=== PATIENT | male | born 1950 | race African-American/Black ===

== ENCOUNTER 2019-04-26 07:07 | Day surgery (SDC) | payer OTHER ==
[2019-04-25 13:53] VITALS: BMI 28.5
[2019-04-26 09:17] VITALS: TEMP 97.9
[2019-04-26 15:03] VITALS: BP 118/68; PULSE 64
--- NOTE | 2019-04-27 14:04 | PATH ---
Surgical Pathology Report Patient Name: BOUCHRA RIVERS [facility] Rec. #: [id number] /Age/Gender: 1950 (Age: 68) / M Account: [id number] Location: [facility]-ENDOSCOPY Taken: 04/26/2019 Received: 04/26/2019 Reported: 04/27/2019 Physicians: Michelet Fernandez D.O. Specimen(s) Received A: SIGMOID POLYP B: BX DISTAL RECTUM Clinical History History of colon polyps Postoperative diagnosis: Diverticulosis, colon polyp Final Diagnosis A. SIGMOID, POLYP, POLYPECTOMY: HYPERPLASTIC POLYP. B. DISTAL RECTUM, BIOPSY: HYPERPLASTIC POLYP. Electronically Signed Mattie Rose M.D. Gross Description A. Received in formalin, labeled "polyp sigmoid" is a solis, irregular portion of soft tissue measuring 0.2 cm. in greatest dimension. The specimen is submitted in toto in one cassette. B. Received in formalin, labeled "biopsy distal rectum" are 6 solis, irregular portions of soft tissue ranging from 0.1-0.4 cm. in greatest dimension. The specimens are submitted in toto in one cassette. 04/26/2019 saudi04/26/2019
== END 2019-04-26 10:00 | disposition home or self-care (01) ==
LOC: JASU-ENDO 07:07
PROVIDERS: ATTEND Internal Medicine Gastroenterology
PROC: 0DBP8ZX Excision of Rectum, Via Natural or Artificial Opening Endoscopic, Diagnostic (ICD-10-PCS; 2019-04-26)
PROC: 0DBN8ZX Excision of Sigmoid Colon, Via Natural or Artificial Opening Endoscopic, Diagnostic (ICD-10-PCS; 2019-04-26)
PROC: 0DBN8ZX Excision of Sigmoid Colon, Via Natural or Artificial Opening Endoscopic, Diagnostic (ICD-10-PCS; principal; 2019-04-26 08:00)
DX: Z86.010 Personal history of colon polyps (principal); D12.5 Benign neoplasm of sigmoid colon; K62.1 Rectal polyp; K57.30 Diverticulosis of large intestine without perforation or abscess without bleeding; K64.8 Other hemorrhoids
CPT/HCPCS: 88305-TC

== ENCOUNTER 2023-02-15 04:47 | Day surgery (SDC) | payer OTHER ==
[2023-02-10 13:08] VITALS: BMI 30.7
[2023-02-15 13:14] VITALS: BP 136/84; PULSE 73; RESP 14; TEMP 97.5
== END 2023-02-15 12:40 | disposition home or self-care (01) ==
LOC: JASU-ENDO 04:47
PROVIDERS: ATTEND Internal Medicine Gastroenterology
PROC: 0DBN8ZX Excision of Sigmoid Colon, Via Natural or Artificial Opening Endoscopic, Diagnostic (ICD-10-PCS; principal; 2023-02-15 10:45)
DX: Z12.11 Encounter for screening for malignant neoplasm of colon (principal); D12.5 Benign neoplasm of sigmoid colon; K62.7 Radiation proctitis; K64.8 Other hemorrhoids; K57.30 Diverticulosis of large intestine without perforation or abscess without bleeding; Z86.010 Personal history of colon polyps; I10 Essential (primary) hypertension
CPT/HCPCS: 88305-TC

== ENCOUNTER 2023-02-17 20:02 | Observation (INO) | payer OTHER ==
[2023-02-17 22:26] LABS: BASO % 0.7 % (0-2.0); EOS % 1.8 % (0-4.5); HEMATOCRIT 34.3 % (35.4-49); HEMOGLOBIN 11.4 GM/dL (11.7-16.9); LYMPH % 34.7 % (8-40); MCH 31.1 pg (25.7-33.7); MCHC 33.3 g/dl (32.0-35.9); MEAN CELL VOLUME 93.3 fl (80-96); MEAN PLT VOLUME 8.4 fl (7.5-11.1); MONO % 8.2 % (3.8-10.2); NEUT % 54.6 % (42.8-82.8); PLATELET COUNT 174 10^3/uL (134-434); RBC 3.68 M/mm3 (4.00-5.60); RDW 14.1 % (11.9-15.9); RETICULOCYTES 1.08 % (0.5-1.5); WHITE BLOOD COUNT 4.2 K/mm3 (4.0-10.0)
[2023-02-17 22:30] LABS: INR 0.98 (0.83-1.09); PROTHROMBIN TIME (PATIENT) 11.4 SEC (9.7-13.0)
[2023-02-17 22:32] LABS: ACTIVATED PTT 29.6 SECONDS (25.2-36.5)
[2023-02-17 22:40] LABS: POTASSIUM 3.8 mmol/L (3.5-5.1)
[2023-02-17 22:42] LABS: CALCIUM 9.3 mg/dL (8.5-10.1)
[2023-02-17 22:43] LABS: ALBUMIN 4.1 g/dl (3.4-5.0); BLOOD UREA NITROGEN 14.2 mg/dL (7-18)
[2023-02-17 22:46] LABS: CREATININE 1.2 mg/dL (0.55-1.3)
[2023-02-17 22:47] LABS: TOT PROT 7.7 g/dl (6.4-8.2)
[2023-02-17 22:48] LABS: BILIRUBIN,TOTAL 0.7 mg/dL (0.2-1)
[2023-02-18] MEDS ORDERED: ACETAMINOPHEN 325 MG TABLET (FP) PO PRN (02:00)
[2023-02-18 15:39] LABS: BASO % 0.7 % (0-2.0); EOS % 2.3 % (0-4.5); HEMATOCRIT 32.2 % (35.4-49); HEMOGLOBIN 10.7 GM/dL (11.7-16.9); LYMPH % 44.1 % (8-40); MCH 31.1 pg (25.7-33.7); MCHC 33.1 g/dl (32.0-35.9); MEAN CELL VOLUME 94.1 fl (80-96); MEAN PLT VOLUME 8.7 fl (7.5-11.1); MONO % 8.1 % (3.8-10.2); NEUT % 44.8 % (42.8-82.8); PLATELET COUNT 168 10^3/uL (134-434); RBC 3.42 M/mm3 (4.00-5.60); RDW 13.9 % (11.9-15.9); WHITE BLOOD COUNT 3.8 K/mm3 (4.0-10.0)
[2023-02-18 16:56] VITALS: BMI 29.3
[2023-02-18 18:38] LABS: BASO % 0.5 % (0-2.0); EOS % 2.5 % (0-4.5); HEMATOCRIT 34.9 % (35.4-49); HEMOGLOBIN 11.4 GM/dL (11.7-16.9); LYMPH % 48.1 % (8-40); MCH 30.8 pg (25.7-33.7); MCHC 32.7 g/dl (32.0-35.9); MEAN CELL VOLUME 94.1 fl (80-96); MONO % 8.8 % (3.8-10.2); NEUT % 40.1 % (42.8-82.8); PLATELET COUNT 186 10^3/uL (134-434); RBC 3.71 M/mm3 (4.00-5.60); RDW 13.7 % (11.9-15.9); WHITE BLOOD COUNT 4.4 K/mm3 (4.0-10.0)
[2023-02-18] MEDS ORDERED: ROSUVASTATIN CA 5 MG TABLET PO SCH (22:00)
[2023-02-19 08:20] LABS: BASO % 0.6 % (0-2.0); EOS % 3.3 % (0-4.5); HEMATOCRIT 34.3 % (35.4-49); HEMOGLOBIN 11.2 GM/dL (11.7-16.9); LYMPH % 41.5 % (8-40); MCHC 32.7 g/dl (32.0-35.9); MEAN CELL VOLUME 94.8 fl (80-96); MEAN PLT VOLUME 9.3 fl (7.5-11.1); MONO % 7.8 % (3.8-10.2); NEUT % 46.8 % (42.8-82.8); PLATELET COUNT 182 10^3/uL (134-434); RBC 3.62 M/mm3 (4.00-5.60); RDW 13.4 % (11.9-15.9); WHITE BLOOD COUNT 3.9 K/mm3 (4.0-10.0)
[2023-02-19 08:21] LABS: BASO % 0.9 % (0-2.0); HEMATOCRIT 34.4 % (35.4-49); HEMOGLOBIN 11.2 GM/dL (11.7-16.9); LYMPH % 41.9 % (8-40); MCH 31.1 pg (25.7-33.7); MCHC 32.4 g/dl (32.0-35.9); MEAN CELL VOLUME 95.7 fl (80-96); MEAN PLT VOLUME 9.4 fl (7.5-11.1); MONO % 7.3 % (3.8-10.2); NEUT % 46.9 % (42.8-82.8); PLATELET COUNT 189 10^3/uL (134-434); RDW 13.5 % (11.9-15.9); WHITE BLOOD COUNT 3.8 K/mm3 (4.0-10.0)
[2023-02-19 08:27] LABS: POTASSIUM 4.4 mmol/L (3.5-5.1)
[2023-02-19 08:29] LABS: CALCIUM 8.9 mg/dL (8.5-10.1)
[2023-02-19 08:30] LABS: BLOOD UREA NITROGEN 16.9 mg/dL (7-18); MAGNESIUM 2.3 mg/dL (1.8-2.4)
[2023-02-19 08:33] LABS: PHOSPHOROUS 3.9 mg/dL (2.5-4.9)
[2023-02-19 08:34] LABS: CREATININE 1.2 mg/dL (0.55-1.3)
[2023-02-19] MEDS ORDERED: BICALUTAMIDE 50 MG TABLET (FP) PO SCH (10:00)
[2023-02-19] MEDS ORDERED: amLODIPine BESYLATE 5 MG TABLET (FP) PO SCH (10:00)
[2023-02-19 12:23] LABS: BASO % 0.6 % (0-2.0); EOS % 2.9 % (0-4.5); HEMATOCRIT 33.9 % (35.4-49); HEMOGLOBIN 11.2 GM/dL (11.7-16.9); LYMPH % 39.8 % (8-40); MCH 31.6 pg (25.7-33.7); MCHC 32.9 g/dl (32.0-35.9); MEAN CELL VOLUME 95.8 fl (80-96); MONO % 8.4 % (3.8-10.2); NEUT % 48.3 % (42.8-82.8); PLATELET COUNT 176 10^3/uL (134-434); RBC 3.54 M/mm3 (4.00-5.60); RDW 13.8 % (11.9-15.9); WHITE BLOOD COUNT 3.9 K/mm3 (4.0-10.0)
[2023-02-19 14:08] VITALS: BP 154/83; PULSE 76; RESP 20; TEMP 97.8
== END 2023-02-19 16:14 | disposition home or self-care (01) ==
LOC: JER 20:02 → JERBED 02-18 01:28 → J7W 02-18 16:11
PROVIDERS: ADMIT Internal Medicine; ATTEND Family Medicine
DX: K92.2 Gastrointestinal hemorrhage, unspecified (principal); K62.7 Radiation proctitis; K64.8 Other hemorrhoids; I10 Essential (primary) hypertension; E78.5 Hyperlipidemia, unspecified; Z87.891 Personal history of nicotine dependence
CPT/HCPCS: 36415; 80048; 80053; 82728; 83540; 83550; 83735; 84100; 85025; 85045; 85610; 85730; 86850; 86900; 86901; 93005; 93010; 99285-25; G0378

== ENCOUNTER 2023-05-16 19:45 | Inpatient (IN) | payer OTHER ==
[2023-05-16 20:58] LABS: BASO % 0.8 % (0-2.0); EOS % 5.2 % (0-4.5); HEMATOCRIT 33.2 % (35.4-49); HEMOGLOBIN 10.9 GM/dL (11.7-16.9); LYMPH % 40.1 % (8-40); MCH 31.4 pg (25.7-33.7); MCHC 32.9 g/dl (32.0-35.9); MEAN CELL VOLUME 95.5 fl (80-96); MEAN PLT VOLUME 9.2 fl (7.5-11.1); MONO % 7.1 % (3.8-10.2); NEUT % 46.8 % (42.8-82.8); PLATELET COUNT 181 10^3/uL (134-434); RBC 3.48 M/mm3 (4.00-5.60); RDW 13.6 % (11.9-15.9); WHITE BLOOD COUNT 4.3 K/mm3 (4.0-10.0)
[2023-05-16 21:08] LABS: INR 0.97 (0.83-1.09); PROTHROMBIN TIME (PATIENT) 11.3 SEC (9.7-13.0)
[2023-05-16 21:11] LABS: ACTIVATED PTT 28.4 SECONDS (25.2-36.5)
[2023-05-16 21:14] LABS: POTASSIUM 4.3 mmol/L (3.5-5.1)
[2023-05-16 21:16] LABS: CALCIUM 8.9 mg/dL (8.5-10.1)
[2023-05-16 21:17] LABS: ALBUMIN 3.9 g/dl (3.4-5.0); BLOOD UREA NITROGEN 14.6 mg/dL (7-18)
[2023-05-16 21:20] LABS: CREATININE 1.2 mg/dL (0.55-1.3)
[2023-05-16 21:21] LABS: BILIRUBIN,TOTAL 0.6 mg/dL (0.2-1)
[2023-05-16 21:22] LABS: TOT PROT 7.2 g/dl (6.4-8.2)
[2023-05-16] MEDS: DEXTROSE 5%-0.45% SALINE 1,000 ML IV SCH (23:23)
[2023-05-17 06:44] LABS: BASO % 0.8 % (0-2.0); EOS % 5.7 % (0-4.5); HEMATOCRIT 31.3 % (35.4-49); HEMOGLOBIN 10.3 GM/dL (11.7-16.9); LYMPH % 37.7 % (8-40); MCH 31.4 pg (25.7-33.7); MCHC 32.8 g/dl (32.0-35.9); MEAN CELL VOLUME 95.6 fl (80-96); MEAN PLT VOLUME 9.8 fl (7.5-11.1); MONO % 7.6 % (3.8-10.2); NEUT % 48.2 % (42.8-82.8); PLATELET COUNT 142 10^3/uL (134-434); RBC 3.28 M/mm3 (4.00-5.60); WHITE BLOOD COUNT 3.9 K/mm3 (4.0-10.0)
[2023-05-17 07:09] LABS: POTASSIUM 3.6 mmol/L (3.5-5.1)
[2023-05-17 07:15] LABS: ALBUMIN 3.4 g/dl (3.4-5.0); BLOOD UREA NITROGEN 12.2 mg/dL (7-18); CALCIUM 8.6 mg/dL (8.5-10.1)
[2023-05-17 07:18] LABS: CREATININE 1.2 mg/dL (0.55-1.3)
[2023-05-17 07:20] LABS: TOT PROT 6.3 g/dl (6.4-8.2)
[2023-05-17] MEDS: TAMSULOSIN HCL 0.4 MG CAP PO SCH (09:18)
[2023-05-17] MEDS: amLODIPine BESYLATE 5 MG TABLET (FP) PO SCH (09:24)
[2023-05-17] MEDS: BICALUTAMIDE 50 MG TABLET (FP) PO SCH (09:24)
[2023-05-17 21:51] LABS: BASO % 0.8 % (0-2.0); HEMATOCRIT 30.2 % (35.4-49); LYMPH % 36.4 % (8-40); MCH 31.1 pg (25.7-33.7); MCHC 33.1 g/dl (32.0-35.9); MEAN CELL VOLUME 93.9 fl (80-96); MEAN PLT VOLUME 8.8 fl (7.5-11.1); MONO % 6.9 % (3.8-10.2); NEUT % 50.9 % (42.8-82.8); PLATELET COUNT 166 10^3/uL (134-434); RBC 3.21 M/mm3 (4.00-5.60); RDW 13.7 % (11.9-15.9); WHITE BLOOD COUNT 4.1 K/mm3 (4.0-10.0)
[2023-05-17] MEDS: ROSUVASTATIN CA 5 MG TABLET PO SCH (21:52)
[2023-05-18] MEDS ORDERED: TAMSULOSIN HCL 0.4 MG CAP PO SCH (08:30)
[2023-05-18] MEDS: TAMSULOSIN HCL 0.4 MG CAP PO SCH (09:04)
[2023-05-18] MEDS: amLODIPine BESYLATE 5 MG TABLET (FP) PO SCH (09:13)
[2023-05-18] MEDS: BICALUTAMIDE 50 MG TABLET (FP) PO SCH (09:13)
[2023-05-18] MEDS ORDERED: BISACODYL 5 MG TABLET.DR (FP) PO ONE (16:00)
[2023-05-18] MEDS ORDERED: PEG 3350/NA SULF BICARB CL/KCL 4000 ML SOLN.RECON PO ONE (17:00)
[2023-05-18] MEDS: ROSUVASTATIN CA 5 MG TABLET PO SCH (21:47)
[2023-05-18] MEDS: DEXTROSE 5%-0.45% SALINE 1,000 ML IV SCH (21:50)
[2023-05-19] MEDS: TAMSULOSIN HCL 0.4 MG CAP PO SCH (08:54)
[2023-05-19] MEDS: BICALUTAMIDE 50 MG TABLET (FP) PO SCH (09:00)
[2023-05-19] MEDS: amLODIPine BESYLATE 5 MG TABLET (FP) PO SCH (09:01)
[2023-05-19 15:32] LABS: BASO % 0.5 % (0-2.0); EOS % 1.9 % (0-4.5); HEMATOCRIT 31.9 % (35.4-49); HEMOGLOBIN 10.5 GM/dL (11.7-16.9); LYMPH % 19.6 % (8-40); MCH 31.4 pg (25.7-33.7); MEAN CELL VOLUME 94.9 fl (80-96); MEAN PLT VOLUME 8.6 fl (7.5-11.1); MONO % 4.6 % (3.8-10.2); NEUT % 73.4 % (42.8-82.8); PLATELET COUNT 170 10^3/uL (134-434); RBC 3.36 M/mm3 (4.00-5.60); RDW 13.9 % (11.9-15.9); WHITE BLOOD COUNT 4.4 K/mm3 (4.0-10.0)
[2023-05-19 16:25] LABS: POTASSIUM 3.8 mmol/L (3.5-5.1)
[2023-05-19 16:27] LABS: ALBUMIN 3.6 g/dl (3.4-5.0); CALCIUM 9.1 mg/dL (8.5-10.1)
[2023-05-19 16:28] LABS: BLOOD UREA NITROGEN 11.8 mg/dL (7-18)
[2023-05-19 16:32] LABS: TOT PROT 6.7 g/dl (6.4-8.2)
[2023-05-19 16:42] LABS: CREATININE 1.4 mg/dL (0.55-1.3)
[2023-05-19] MEDS: ROSUVASTATIN CA 5 MG TABLET PO SCH (21:27)
[2023-05-20] MEDS: DEXTROSE 5%-0.45% SALINE 1,000 ML IV SCH (06:21)
[2023-05-20] MEDS: amLODIPine BESYLATE 5 MG TABLET (FP) PO SCH (09:31)
[2023-05-20] MEDS: TAMSULOSIN HCL 0.4 MG CAP PO SCH (09:31)
[2023-05-20] MEDS: BICALUTAMIDE 50 MG TABLET (FP) PO SCH (09:32)
[2023-05-20 18:29] LABS: BASO % 0.8 % (0-2.0); EOS % 3.4 % (0-4.5); HEMATOCRIT 32.9 % (35.4-49); HEMOGLOBIN 10.7 GM/dL (11.7-16.9); LYMPH % 29.8 % (8-40); MCH 31.3 pg (25.7-33.7); MCHC 32.7 g/dl (32.0-35.9); MEAN CELL VOLUME 95.7 fl (80-96); MEAN PLT VOLUME 8.9 fl (7.5-11.1); MONO % 7.5 % (3.8-10.2); NEUT % 58.5 % (42.8-82.8); PLATELET COUNT 173 10^3/uL (134-434); RBC 3.43 M/mm3 (4.00-5.60); RDW 13.9 % (11.9-15.9); WHITE BLOOD COUNT 6.6 K/mm3 (4.0-10.0)
[2023-05-20] MEDS: ROSUVASTATIN CA 5 MG TABLET PO SCH (21:33)
[2023-05-21 07:06] LABS: BASO % 0.8 % (0-2.0); EOS % 4.5 % (0-4.5); HEMATOCRIT 29.9 % (35.4-49); LYMPH % 35.7 % (8-40); MCH 31.8 pg (25.7-33.7); MCHC 33.3 g/dl (32.0-35.9); MEAN CELL VOLUME 95.2 fl (80-96); MEAN PLT VOLUME 8.9 fl (7.5-11.1); MONO % 8.8 % (3.8-10.2); NEUT % 50.2 % (42.8-82.8); PLATELET COUNT 165 10^3/uL (134-434); RBC 3.14 M/mm3 (4.00-5.60); RDW 13.8 % (11.9-15.9)
[2023-05-21] MEDS: TAMSULOSIN HCL 0.4 MG CAP PO SCH (08:21)
[2023-05-21] MEDS: BICALUTAMIDE 50 MG TABLET (FP) PO SCH (09:58)
[2023-05-21] MEDS: amLODIPine BESYLATE 5 MG TABLET (FP) PO SCH (09:58)
[2023-05-21] MEDS: DEXTROSE 5%-0.45% SALINE 1,000 ML IV SCH (13:00)
[2023-05-21] MEDS: ROSUVASTATIN CA 5 MG TABLET PO SCH (21:13)
[2023-05-22 06:45] LABS: BASO % 0.9 % (0-2.0); EOS % 4.5 % (0-4.5); HEMATOCRIT 30.2 % (35.4-49); HEMOGLOBIN 10.2 GM/dL (11.7-16.9); LYMPH % 38.4 % (8-40); MCH 32.1 pg (25.7-33.7); MCHC 33.8 g/dl (32.0-35.9); MEAN PLT VOLUME 8.6 fl (7.5-11.1); MONO % 8.6 % (3.8-10.2); NEUT % 47.6 % (42.8-82.8); PLATELET COUNT 168 10^3/uL (134-434); RBC 3.18 M/mm3 (4.00-5.60); RDW 13.4 % (11.9-15.9); WHITE BLOOD COUNT 4.8 K/mm3 (4.0-10.0)
[2023-05-22 07:01] LABS: POTASSIUM 3.8 mmol/L (3.5-5.1)
[2023-05-22 07:05] LABS: BLOOD UREA NITROGEN 15.3 mg/dL (7-18); CALCIUM 8.7 mg/dL (8.5-10.1)
[2023-05-22 07:08] LABS: CREATININE 1.3 mg/dL (0.55-1.3)
[2023-05-22] MEDS: TAMSULOSIN HCL 0.4 MG CAP PO SCH (08:07)
[2023-05-22] MEDS: DEXTROSE 5%-0.45% SALINE 1,000 ML IV SCH ×2 (09:00→15:15)
[2023-05-22] MEDS: amLODIPine BESYLATE 5 MG TABLET (FP) PO SCH (10:25)
[2023-05-22] MEDS: BICALUTAMIDE 50 MG TABLET (FP) PO SCH (10:25)
[2023-05-22 20:17] VITALS: RESP 19
[2023-05-22] MEDS: ROSUVASTATIN CA 5 MG TABLET PO SCH (21:05)
[2023-05-23 07:34] LABS: BASO % 0.9 % (0-2.0); EOS % 4.9 % (0-4.5); HEMATOCRIT 30.1 % (35.4-49); HEMOGLOBIN 9.9 GM/dL (11.7-16.9); MCH 31.4 pg (25.7-33.7); MCHC 32.8 g/dl (32.0-35.9); MEAN CELL VOLUME 95.6 fl (80-96); MONO % 9.2 % (3.8-10.2); PLATELET COUNT 174 10^3/uL (134-434); RBC 3.14 M/mm3 (4.00-5.60); RDW 13.8 % (11.9-15.9); WHITE BLOOD COUNT 4.2 K/mm3 (4.0-10.0)
[2023-05-23 07:50] LABS: CALCIUM 8.7 mg/dL (8.5-10.1)
[2023-05-23 07:51] LABS: BLOOD UREA NITROGEN 19.3 mg/dL (7-18)
[2023-05-23 07:54] LABS: CREATININE 1.5 mg/dL (0.55-1.3)
[2023-05-23 08:57] VITALS: BP 128/73; PULSE 83; TEMP 98.4
[2023-05-23] MEDS: BICALUTAMIDE 50 MG TABLET (FP) PO SCH (09:12)
[2023-05-23] MEDS: amLODIPine BESYLATE 5 MG TABLET (FP) PO SCH (09:12)
[2023-05-23] MEDS: TAMSULOSIN HCL 0.4 MG CAP PO SCH (09:12)
== END 2023-05-23 13:03 | disposition home or self-care (01) | DRG 393 ==
LOC: JER 19:45 → OBSVTOIN 22:07 → JERBED 22:07 → INTOOBSV 22:07 → UNDOADMOB 22:07 → JERBED 05-17 04:41 → J4W 05-17 04:41 → JERBED 05-19 07:08 → OBSVTOIN 05-19 07:08 → J4W 05-19 22:30
PROVIDERS: ADMIT Internal Medicine; ATTEND Family Medicine
PROC: 0D5E8ZZ Destruction of Large Intestine, Via Natural or Artificial Opening Endoscopic (ICD-10-PCS; principal; 2023-05-19 10:30)
DX: K62.7 Radiation proctitis (principal); K57.91 Diverticulosis of intestine, part unspecified, without perforation or abscess with bleeding; K62.5 Hemorrhage of anus and rectum; E78.5 Hyperlipidemia, unspecified; I10 Essential (primary) hypertension; Z85.46 Personal history of malignant neoplasm of prostate; E66.9 Obesity, unspecified; Z68.30 Body mass index [BMI] 30.0-30.9, adult
CPT/HCPCS: 0241U-QW; 36415; 80048; 80053; 82272; 84484; 85025; 85610; 85730; 86850; 86900; 86901; 93005; 93010; 97116-GP; 97161-GP; 99285-25

== ENCOUNTER 2023-07-04 04:14 | Day surgery (SDC) | payer OTHER ==
[2023-06-30 11:52] VITALS: BMI 30.4
[2023-07-04 13:39] VITALS: TEMP 98
[2023-07-04 13:44] VITALS: BP 126/68; PULSE 87; RESP 17
== END 2023-07-04 10:06 | disposition home or self-care (01) ==
LOC: JASU-ENDO 04:14
PROVIDERS: ATTEND Internal Medicine Gastroenterology
PROC: 0D5P8ZZ Destruction of Rectum, Via Natural or Artificial Opening Endoscopic (ICD-10-PCS; principal; 2023-07-04 08:45)
DX: K62.7 Radiation proctitis (principal); K64.8 Other hemorrhoids; I10 Essential (primary) hypertension

== ENCOUNTER 2023-08-18 12:08 | Day surgery (SDC) | payer OTHER ==
[2023-08-18] MEDS: IRON SUCROSE INJECTION 200 MG in SODIUM CHLORIDE 100 ML IVPB ONE (12:40)
[2023-08-18 14:26] VITALS: BP 128/77; PULSE 72; RESP 18; TEMP 98.2
== END 2023-08-18 13:45 | disposition home or self-care (01) ==
LOC: FINFUSION 12:08 → FM/S 12:10 → FINFUSION 13:45
PROVIDERS: ATTEND Family Medicine
PROC: 3E033GC Introduction of Other Therapeutic Substance into Peripheral Vein, Percutaneous Approach (ICD-10-PCS; principal; 2023-08-18)
DX: D50.9 Iron deficiency anemia, unspecified (principal)
CPT/HCPCS: 96365; J1756

== ENCOUNTER 2023-08-25 12:52 | Day surgery (SDC) | payer OTHER ==
[2023-08-25] MEDS: IRON SUCROSE INJECTION 200 MG in SODIUM CHLORIDE 100 ML IVPB ONE (13:17)
[2023-08-25 14:35] VITALS: BP 133/73; PULSE 87; RESP 20; TEMP 98.9
== END 2023-08-25 14:10 | disposition home or self-care (01) ==
LOC: FINFUSION 12:52 → FM/S 12:53 → FINFUSION 14:10
PROVIDERS: ATTEND Family Medicine
PROC: 3E033GC Introduction of Other Therapeutic Substance into Peripheral Vein, Percutaneous Approach (ICD-10-PCS; principal; 2023-08-25)
DX: D50.9 Iron deficiency anemia, unspecified (principal)
CPT/HCPCS: 96365; J1756

== ENCOUNTER 2023-10-27 04:23 | Day surgery (SDC) | payer OTHER ==
[2023-10-26 10:53] VITALS: BMI 31.2
[2023-10-27 07:20] VITALS: TEMP 98.1
[2023-10-27 09:42] VITALS: PULSE 70; RESP 18
[2023-10-27 09:54] VITALS: BP 143/95
== END 2023-10-27 10:05 | disposition home or self-care (01) ==
LOC: JASU-ENDO 04:23
PROVIDERS: ATTEND Internal Medicine Gastroenterology
PROC: 0DB68ZX Excision of Stomach, Via Natural or Artificial Opening Endoscopic, Diagnostic (ICD-10-PCS; 2023-10-27)
PROC: 0DB78ZX Excision of Stomach, Pylorus, Via Natural or Artificial Opening Endoscopic, Diagnostic (ICD-10-PCS; 2023-10-27)
PROC: 0DJD8ZZ Inspection of Lower Intestinal Tract, Via Natural or Artificial Opening Endoscopic (ICD-10-PCS; principal; 2023-10-27 08:00)
DX: K62.7 Radiation proctitis (principal); K29.80 Duodenitis without bleeding; K29.81 Duodenitis with bleeding; K29.50 Unspecified chronic gastritis without bleeding; K64.8 Other hemorrhoids; I10 Essential (primary) hypertension; Z87.19 Personal history of other diseases of the digestive system
CPT/HCPCS: 88305-TC; 88342-TC